=== PATIENT | female | born 1935 | race Caucasian/White ===

== ENCOUNTER 2017-01-22 19:02 | Emergency (ER) | payer OTHER ==
[~2017-01-22] VITALS: Ht 157.5 cm; Wt 136.1 kg
[~2017-01-22 19:02] MED LIST: GLUCOPHAGE500 MG; ZOCOR 10 MG TAB10 MG
[2017-01-22] MEDS ORDERED: PRINZIDE 20-251 EACH PO (19:06)
[2017-01-22 20:58] VITALS: BP 136/78
[2017-01-22] MEDS ORDERED: SENOKOT-S1 TA1 PO (21:08)
[2017-01-22] MEDS ORDERED: ULTRAM 50MG TAB50 MG PO (21:09)
== END 2017-01-22 22:09 | disposition home or self-care (01) ==
LOC: ER 19:02
DX: S92.022A Displaced fracture of anterior process of left calcaneus, initial encounter for closed fracture (principal); S40.011A Contusion of right shoulder, initial encounter; Z98.890 Other specified postprocedural states; Z90.49 Acquired absence of other specified parts of digestive tract; Z90.710 Acquired absence of both cervix and uterus; W18.39XA Other fall on same level, initial encounter; Y93.89 Activity, other specified; Y92.89 Other specified places as the place of occurrence of the external cause; Y99.8 Other external cause status